=== PATIENT | male | born 1970 | race Caucasian/White ===

== ENCOUNTER 2019-04-28 23:46 | Emergency (ER) | payer SELFPAY ==
[2019-04-28] MEDS ORDERED: IPRATROPIUM/ALBUTEROL SULFATE 3 ML AMPUL.NEB NEB ONE (23:50)
--- NOTE | 2019-04-28 23:50 | ED Physician Documentation ---
Dyspnea - HISTORIAN Historian: patient - HPI Stated Complaint: shortness of breath Chief Complaint: Dyspnea Additional Information: Patient presents to ED with a 2-3 day history of increasing shortness of breath. Patient has a history of COPD. 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 He has been without his inhaled steroid due to no insurance and he cannot afford it. Patient has also been out of blood pressure meds and diabetic meds. Onset: days ago (2) Duration: continues in ED Initiating Event: out of meds Severity: moderate Exacerbated By: exertion, coughing Associated Symptoms: productive cough (white/clear sputum). denies: fever, katerine st pain - ROS CONST: no problems EYES/ENT: nasal drainage GI/: none NEURO/PSYCH: denies: headache MS/SKIN/LYMPH: denies: muscle aches - PAST HX Lung Disease: COPD Cardiac Disease: none PE Risk Factors: hypertension Other History: diabetes Type 2 Allergies/Adverse Reactions: Allergies Allergy/AdvReac Type Severity Reaction Status Date / Time No Known Allergies Allergy Verified 04/29/19 00:04 Home Medications: Ambulatory Orders Medication Instructions Recorded Albuterol Sulfate [Albuterol 04/29/19 Sulfate Hfa] Albuterol Sulfate [Ventolin HFN] 2.5 mg NEB Q8 #90 ampul.neb 04/29/19 Azithromycin 250 mg PO DAILY #4 tablet 04/29/19 Hydrochlorothiazide 04/29/19 Ipratropium [place] [Atrovent INH 0.5 mg NEB Q8 #90 ampul.neb 04/29/19 Soln] Lisinopril 04/29/19 Lisinopril/Hydrochlorothiazide 1 each PO DAILY #30 tablet 04/29/19 [Zestoretic 20-25 mg Tablet] Metformin HCl 500 mg PO BID #60 tablet 04/29/19 predniSONE [Deltasone] 10 mg PO DIRECTED #20 tablet 04/29/19 - SOCIAL HX Smoking History: non-smoker Alcohol Use: none Drug Use: none - FAMILY HX Family History: none - REVIEWED ASSESSMENTS Nursing Assessment Reviewed: Yes Vitals Reviewed: Yes Progress - Progress Progress: 015 Patient breathing better after breathing treatment Dyspnea Physical Exam - EXAM General Appearance: mild distress EENT: BRIGITTE Respiratory: respiratory distress, prolonged expirations, accessory muscle use, decreased air movement, wheezes (difusse inspiratory/expiratory wheezing bilaterally) CVS: no murmur, tachycardia Skin: color nml, no rash Extremities: non-tender, no edema Neuro/Psych: oriented x3, motor nml, sensation nml Discharge Clincal Impression: COPD with acute exacerbation Prescriptions: Albuterol Sulfate [Ventolin HFN] 2.5 mg NEB Q8 #90 ampul.neb Azithromycin 250 mg PO DAILY #4 tablet Ipratropium [place] [Atrovent INH Soln] 0.5 mg NEB Q8 #90 ampul.neb Lisinopril/Hydrochlorothiazide [Zestoretic 20-25 mg Tablet] 1 each PO DAILY #30 tablet Metformin HCl 500 mg PO BID #60 tablet predniSONE [Deltasone] 10 mg PO DIRECTED #20 tablet Additional Instructions: 1. Take antibiotic until gone 2. Take prednisone taper as prescribed 3. Resume home meds of Lisinopril, HCTZ and Metformin 4. Do breathing treatments every 8 hours until you can resume inhaled steroid/long acting dilator inhaler 5. Add daily antihistamine of Claritin, Zyrtec, Xyzal or Viry 6. Follow up with PCP within 1 week. Discuss getting a Pulmonology referral. Highly recommend pulmonary function tests and echocardiogram 7. Return to ER for new or worsening symptoms Condition: Stable Disposition: 01 HOME, SELF-CARE Decision to Admit: NO Date of Decison to Admit: 04/29/19 Decision Time: 00:53
[2019-04-28] MEDS ORDERED: AZITHROMYCIN 250 MG TABLET PO ONE (23:51)
[2019-04-28] MEDS ORDERED: methylPREDNISolone SOD SUCC 125 MG/2 ML VIAL IM ONE (23:51)
[2019-04-28] MEDS ORDERED: MONTELUKAST SODIUM 10 MG TABLET PO ONE (23:52)
[2019-04-29] MEDS ORDERED: diphenhydrAMINE HCL 25 MG TABLET PO ONE (00:01)
[2019-04-29] MEDS ORDERED: hydrALAZINE HCL 25 MG TABLET PO ONE (00:02)
[2019-04-29] MEDS ORDERED: IPRATROPIUM/ALBUTEROL SULFATE 3 ML AMPUL.NEB NEB ONE ×2 (00:02→00:52)
[2019-04-29 06:03] VITALS: BP 143/81
== END 2019-04-29 01:01 | disposition home or self-care (01) ==
LOC: ED 23:46
DX: J44.1 Chronic obstructive pulmonary disease with (acute) exacerbation (principal)
CPT/HCPCS: 96372; 99284; J2930; Q0163